=== PATIENT | male | born 1965 | race Two or more races ===

== ENCOUNTER 2018-10-11 12:15 | Inpatient (IN) | payer OTHER ==
[~2018-10-11] VITALS: Ht 172.7 cm; Wt 95.3 kg
== END 2018-10-14 20:52 | DRG 395 ==
LOC: SURG 10-13 10:40 → O/R 10-13 10:40 → SURH 10-13 12:15 → SURG 10-13 19:20
PROVIDERS: ADMIT Colon & Rectal Surgery
PROC: 0DBP8ZZ Excision of Rectum, Via Natural or Artificial Opening Endoscopic (ICD-10-PCS; principal; 2018-10-13 15:30)
DX: K62.1 Rectal polyp (principal); I10 Essential (primary) hypertension; E66.8 Other obesity

== ENCOUNTER 2019-08-19 07:53 | Day surgery (SDC) | payer OTHER | END 2019-08-19 12:50 | disposition home or self-care (01) | LOC: AMB-ENDOS 07:53 | DX: D12.8 Benign neoplasm of rectum (principal); K57.30 Diverticulosis of large intestine without perforation or abscess without bleeding; K64.1 Second degree hemorrhoids ==

== ENCOUNTER 2021-08-16 07:27 | Day surgery (SDC) | payer OTHER | END 2021-08-16 12:20 | disposition home or self-care (01) | LOC: AMB-ENDOS 07:27 | PROVIDERS: ATTEND Colon & Rectal Surgery | DX: D12.8 Benign neoplasm of rectum (principal); K64.0 First degree hemorrhoids; Z20.822 Contact with and (suspected) exposure to COVID-19 ==